=== PATIENT | male | born 1955 | race Caucasian/White ===

== ENCOUNTER → 2020-11-14 00:53 | Outpatient (CLI) | payer MEDICARE, SELFPAY ==
[2020-11-14 18:54] LABS: SARS-CoV-2 RNA PCR Negative
== END ==
PROVIDERS: PCP Family Medicine; Visit Provider Internal Medicine Gastroenterology
DX: Z01.812 Encounter for preprocedural laboratory examination (principal); Z20.822 Contact with and (suspected) exposure to COVID-19
CPT/HCPCS: C9803; U0003; U0005

== ENCOUNTER 2020-11-17 01:10 | Day surgery (SDC) | payer MEDICARE, SELFPAY ==
[2020-11-03 14:22] VITALS: BMI 31.9
[2020-11-17 07:50] VITALS: BP 132/78; PULSE 62; RESP 16; TEMP 36.5; O2SAT 98; BMI 32.3
[2020-11-17] MEDS: LACTATED RINGERS 1,000 ML 150 ML IV CONT (08:00)
--- NOTE | 2020-11-17 08:43 | P.PNAN_ITS ---
Anes - Initial Pre Proc Eval Procedure: Operation Date: 11/17/20 09:00 Proposed Procedures p Screening Colonoscopy - Hung Peña MD Date/Time: 11/17/20 08:43 Surgeon: Hung Peña MD Pre Op Diagnosis: hx of colon polyp Patient Data Age: 65 Gender: M Height: 5 ft 10 in Weight: 102.3 kg Last Vital Signs Temp 97.7 F 11/17/20 07:50 Pulse 62 11/17/20 07:50 Resp 16 11/17/20 07:50 BP 132/78 11/17/20 07:50 Pulse Ox 98 11/17/20 07:50 Allergies Allergy/AdvReac Type Severity Reaction Status Date / Time Penicillins Allergy Unknown Unknown Verified 11/17/20 07:49 Home Medications Medication Instructions Recorded Confirmed Type amlodipine 5 mg-benazepril 20 mg 1 cap PO DAILY #90 cap 09/29/20 11/17/20 Rx capsule atorvastatin 10 mg tablet 10 mg PO DAILY #90 tablet 09/29/20 11/17/20 Rx aspirin 81 mg PO DAILY 11/03/20 11/17/20 History Patient hx anesthesia problems: none Family hx anesthesia problems: none PMFSH Past Medical History Medical History (Updated 02/07/20 @ 11:19 by Joe Nolen MD) High cholesterol HTN (hypertension) Family History Family History (Updated 04/01/16 @ 23:19 by DOCTOR UNKNOWN) Father Hypertension Mother Hypertension Cerebrovascular accident Family history of diabetes mellitus in first degree relative Family history of malignant neoplasm of breast in first degree relative Sibling Hypertension Social History Social History (Updated 09/29/20 @ 08:45 by Sherly Cote) Smoking status: Never smoker Second hand tobacco smoke exposure: No Alcohol intake: never Substance use: never Substance use type: does not use Living arrangements: with family Gender identity (if verbalized by the patient): Male Spiritual care concerns: No Anes - Eval Final PreProcedure Day of Procedure 11/17/20 08:43 Patient weight: overweight Heart: regular rate and rhythm Lungs: clear to auscultation Airway: Mallampati scale class II Neurological: alert and oriented Last oral intake: >/= 8 hours ASA classification: II Emergent: no Anesthetic plan: proceed Anesthesia type and monitoring: general GIVS and standard monitoring Informed Consent: The patient's anesthetic plan and its attendant risks and benefits were discussed with the patient/family/POA. Questions were solicited a nd answers provided to the satisfaction of the patient/family/POA.
--- NOTE | 2020-11-17 08:47 | PM.HPGS ---
History of Present Illness History of Present Illness Consent: Risks, benefits, and alternatives have been discussed and questions answered. Patient agrees to proceed with procedure. Chief complaint: hx of colon polyp Narrative: Gulshan Carrillo is a 65 year old male here for colon cancer screening. He had a polyp removed about 15 years ago Review of Systems Review of Systems: All systems reviewed & are unremarkable except as noted in HPI and below PMFSH Past Medical History Medical History High cholesterol HTN (hypertension) Family History Family History Father Hypertension Mother Hypertension Cerebrovascular accident Family history of diabetes mellitus in first degree relative Family history of malignant neoplasm of breast in first degree relative Sibling Hypertension Social History Social History Smoking status: Never smoker Second hand tobacco smoke exposure: No Alcohol intake: never Substance use: never Substance use type: does not use Living arrangements: with family Gender identity (if verbalized by the patient): Male Spiritual care concerns: No Meds Home Medications and Allergies Home Medications Medication Instructions Recorded Confirmed Type amlodipine 5 mg-benazepril 20 mg 1 cap PO DAILY #90 cap 09/29/20 11/17/20 Rx capsule atorvastatin 10 mg tablet 10 mg PO DAILY #90 tablet 09/29/20 11/17/20 Rx aspirin 81 mg PO DAILY 11/03/20 11/17/20 History Allergies Allergy/AdvReac Type Severity Reaction Status Date / Time Penicillins Allergy Unknown Unknown Verified 11/17/20 07:49 Vital Signs Vital Signs - 24 hr 11/17/20 07:50 Temperature 36.5 C Pulse Rate 62 Respiratory Rate 16 Blood Pressure 132/78 Pulse Oximetry 98 Exam Resp: Auscultation: clear to auscultation bilaterally Cardio: Rate: regular rate Rhythm: regular rhythm GI: GI Palp: Yes Soft to palpation and No Tenderness to palpation present (GI) Assessment and Plan Assessment and plan (1) Colon cancer screening: Code(s): Z12.11 - Encounter for screening for malignant neoplasm of colon Status: Acute Assessment and Plan: Colonoscopy with possible biopsy or polypectomy or cautery or injection of substances.
[2020-11-17] MEDS: SIMETHICONE ORAL SUSPENSION 20 MG/0.3 ML 30 ML BOTTLE 0.6 ML IRRIGATION (09:06)
[2020-11-17 09:14] VITALS: BP 76/44; PULSE 55; RESP 16; O2SAT 94
[2020-11-17 09:24] VITALS: BP 99/70; PULSE 53; RESP 19; O2SAT 99
[2020-11-17 09:34] VITALS: BP 119/68; PULSE 55; RESP 19; O2SAT 99
== END 2020-11-17 09:55 | disposition home or self-care (01) ==
PROVIDERS: PCP Family Medicine; Visit Provider Internal Medicine Gastroenterology
PROC: 0DJD8ZZ Inspection of Lower Intestinal Tract, Via Natural or Artificial Opening Endoscopic (ICD-10-PCS; CPT 45378; principal; 2020-11-17 09:00)
DX: Z12.11 Encounter for screening for malignant neoplasm of colon (principal); Z86.010 Personal history of colon polyps; I10 Essential (primary) hypertension; E78.00 Pure hypercholesterolemia, unspecified
CPT/HCPCS: G0105; C9803; J2704; J7120; U0003; U0005

== ENCOUNTER 2021-05-26 10:27 | Outpatient (CLI) | payer MEDICARE, SELFPAY ==
--- NOTE | ~2021-05-26 | XR_ITS ---
EXAMINATION: XR hip BI wo pelvis DATE: 05/26/2021 10:58 INDICATION: Right hip pain TECHNIQUE: Anteroposterior and frog-leg lateral views of the left hip and anteroposterior and frog-le g lateral views of the right hip were obtained. COMPARISON: None. FINDINGS: Normal alignment at both hips. No fracture. Severe osteoarthritis at the right hip with hypertrophic marginal osteophytes and subarticular cystic changes at the lateral aspect of both the femoral and ac etabular sides of the joint space. Mild to moderate left hip osteoarthritis. Multiple phleboliths in the pelvis. Soft tissues are unremarkable. IMPRESSION: 1. Severe right and mild to moderate left hip osteoarthritis. Reviewed, dictated and finalized at location A.
== END 2021-05-26 10:28 | disposition home or self-care (01) ==
LOC: ANHIMG 10:32
PROVIDERS: PCP Family Medicine; Visit Provider Family Medicine
DX: M16.0 Bilateral primary osteoarthritis of hip (principal)
CPT/HCPCS: 73521

== ENCOUNTER 2021-10-11 07:59 | Outpatient (CLI) | payer MEDICARE, SELFPAY ==
--- NOTE | 2021-10-11 09:04 | ECG_ITS ---
Measurements Intervals [place] Rate: 59 P: 64 [place]: 139 QRS: 3 QRSD: 110 T: 0 QT: 415 QTc: 412 Interpretive Statements SINUS BRADYCARDIA INCOMPLETE RIGHT BUNDLE BRANCH BLOCK LOW QRS VOLTAGE IN PRECORDIAL LEADS INFERIOR INFARCT, AGE INDETERMINATE BASELINE ARTIFACT- I, II, III, AVR, AVL, AVF ABNORMAL ECG Electronically Signed On 10-11-2021 9:37:53 [employer] TECH[employer] MANAGER by Pino John D.O.
[2021-10-11 10:47] LABS: Urine Cotinine NEGATIVE
[2021-10-11 10:48] LABS: Hematocrit 42.6 % (42.0-52.0); Hemoglobin 13.8 g/dL (14.0-18.0); Mean Corpuscular HGB Conc 32.4 g/dl (32-36); Mean Corpuscular Hemoglobin 31.2 pg (26-34); Mean Corpuscular Volume 96.4 fl (80-100); Mean Platelet Volume 10.5 fl (7.4-10.4); Platelet Count Result 200 k/mm3 (150-375); Red Blood Count 4.42 M/mm3 (4.6-6.20); Red Cell Distribution Width 12.2 % (11.5-14.5); White Blood Count 5.6 K/mm3 (4.5-10.0)
== END 2021-10-11 08:00 | disposition home or self-care (01) ==
LOC: ANHSURGERY 08:03
PROVIDERS: PCP Family Medicine; Visit Provider Orthopaedic Surgery
DX: M16.11 Unilateral primary osteoarthritis, right hip (principal); Z01.818 Encounter for other preprocedural examination; I45.10 Unspecified right bundle-branch block
CPT/HCPCS: 80307; 85027; 86850; 86900; 86901; 87081; 93005

== ENCOUNTER 2022-01-07 09:45 | Outpatient (CLI) | payer MEDICARE, SELFPAY ==
[2022-01-07 11:00] LABS: Basophils Percent Auto 0.7 % (0.2-1.2); Eosinophils Absolute Auto 0.1 K/mm3 (0-0.3); Eosinophils Percent Auto 1.6 % (0-4.4); Hematocrit 43.4 % (42.0-52.0); Immature Granulocyte Absolute 0.01 K/mm3 (0.00-0.031); Immature Granulocyte Percent A 0.2 % (0-0.5); Lymphocytes Absolute Auto 1.62 K/mm3 (0.9-3.2); Lymphocytes Percent Auto 27.9 % (18.3-44.2); Mean Corpuscular HGB Conc 32.3 g/dl (32-36); Mean Corpuscular Hemoglobin 31.3 pg (26-34); Mean Corpuscular Volume 96.9 fl (80-100); Mean Platelet Volume 10.1 fl (7.4-10.4); Monocytes Absolute Auto 0.4 K/mm3 (0.1-0.6); Monocytes Percent Auto 6.9 % (2.6-8.5); Neutrophils Absolute Auto 3.6 K/mm3 (1.3-6.7); Neutrophils Percent Auto 62.7 % (45.5-73.1); Platelet Count Result 219 k/mm3 (150-375); Red Blood Count 4.48 M/mm3 (4.6-6.20); Red Cell Distribution Width 12.2 % (11.5-14.5); White Blood Count 5.8 K/mm3 (4.5-10.0)
[2022-01-07 11:11] LABS: Urine Cotinine NEGATIVE
[2022-01-07 11:14] LABS: Albumin Level 4.5 g/dL (3.5-5.1); Anion Gap 7 mmol/L (8-16); Blood Urea Nitrogen 15 mg/dL (9-20); Calcium 9.2 mg/dL (8.4-10.2); Carbon Dioxide 27 mmol/L (22-30); Chloride 104 mmol/L (98-107); Estimated Glomerular Filt Rate > 60; Glucose 114 mg/dL (65-110); Potassium 4.3 mmol/L (3.4-5.0); Sodium 138 mmol/L (137-145)
[2022-01-07 11:21] LABS: Hemoglobin A1C 5.8 % (<5.7)
== END 2022-01-07 09:46 | disposition home or self-care (01) ==
PROVIDERS: PCP Family Medicine; Visit Provider Orthopaedic Surgery
DX: Z01.818 Encounter for other preprocedural examination (principal); M16.11 Unilateral primary osteoarthritis, right hip
CPT/HCPCS: 80048; 80307; 82040; 83036; 85025; 87070

== ENCOUNTER 2022-03-21 08:19 | Outpatient (CLI) | payer MEDICARE, SELFPAY ==
[2022-03-21 08:56] LABS: Basophils Absolute Auto 0.1 K/mm3 (0.0-0.1); Basophils Percent Auto 0.8 % (0.2-1.2); Eosinophils Absolute Auto 0.2 K/mm3 (0-0.3); Eosinophils Percent Auto 3.1 % (0-4.4); Hematocrit 41.3 % (42.0-52.0); Hemoglobin 13.2 g/dL (14.0-18.0); Immature Granulocyte Absolute 0.02 K/mm3 (0.00-0.031); Immature Granulocyte Percent A 0.3 % (0-0.5); Lymphocytes Absolute Auto 2.42 K/mm3 (0.9-3.2); Lymphocytes Percent Auto 37.3 % (18.3-44.2); Mean Corpuscular Hemoglobin 30.7 pg (26-34); Mean Platelet Volume 9.5 fl (7.4-10.4); Monocytes Absolute Auto 0.5 K/mm3 (0.1-0.6); Monocytes Percent Auto 7.1 % (2.6-8.5); Neutrophils Absolute Auto 3.3 K/mm3 (1.3-6.7); Neutrophils Percent Auto 51.4 % (45.5-73.1); Platelet Count Result 216 k/mm3 (150-375); Red Cell Distribution Width 12.1 % (11.5-14.5); White Blood Count 6.5 K/mm3 (4.5-10.0)
[2022-03-21 09:06] LABS: Albumin Level 4.2 g/dL (3.5-5.1); Anion Gap 6 mmol/L (8-16); Blood Urea Nitrogen 17 mg/dL (9-20); Calcium 8.6 mg/dL (8.4-10.2); Carbon Dioxide 28 mmol/L (22-30); Chloride 105 mmol/L (98-107); Estimated Glomerular Filt Rate > 60; Glucose 115 mg/dL (65-110); Potassium 3.8 mmol/L (3.4-5.0); Sodium 139 mmol/L (137-145)
[2022-03-21 09:18] LABS: Urine Cotinine NEGATIVE
== END 2022-03-21 08:20 | disposition home or self-care (01) ==
PROVIDERS: PCP Family Medicine; Visit Provider Orthopaedic Surgery
DX: M16.11 Unilateral primary osteoarthritis, right hip (principal); Z01.818 Encounter for other preprocedural examination
CPT/HCPCS: 80048; 80307; 82040; 85025; 86850; 86900; 86901; 87070

== ENCOUNTER 2022-03-28 00:50 | Day surgery (SDC) | payer MEDICARE, SELFPAY ==
--- NOTE | 2022-01-07 09:59 | PC.NURSE ---
Report to the Outpatient Waiting Room, entrance under the green pavilion located off [facility], at time _0600_ on date _01/24/22_. OR Time: __0730__. PACK A SMALL OVERNIGHT BAG AND LEAVE IT IN THE CAR - You and your visitor will be asked a series of questions to screen for COVID 19 for your protection. - Only one visitor is allowed at this time. - The patient visitor is requested to leave or wait in car when not with patient. VISITING HOURS 10AM-8PM, USE HOSPITAL MAIN ENTRANCE #1 - A mask is required within the hospital. Patients may have clear liquids (water, carbonated beverages, clear teas, apple juice) until 3 hours prior to surgery (0430 AM) with a maximum of 20 ounces. - No food from midnight until time of surgery Take the following medications with a SIP of water the morning of surgery: _AMLODIPINE_ Medications to discontinue per [facility] - PT STATES TO STOP ASPIRIN AND SUPPLEMENTS 7 DAYS PRIOR TO SURGERY, Date to take last 01/16/22_ Please no deodorant, or body powder the day of surgery. No jewelry (including any body piercings) or valuables the day of surgery, leave them at home. Please take a shower or bath the night before, or the morning of, surgery with an antibacterial soap. Wear comfortable, loose fitting clothing. - Jewelry must be removed prior to entering the operating room. Rings and piercings that are not removed may be cut off. - The hospital will not accept responsibility for valuables. - Please leave all valuables, including medications, at home the day of surgery. If you are going home after surgery, a licensed guard driver must drive you home. - NO public transportation without another adult. - We recommend that an adult stay with you for 24 hours following discharge. - We also recommend that you do not drive, make important decision, drink alcoholic beverages, or take any drugs that were not prescribed by your health care provider for at least 24 hours after your discharge time. Follow any additional instructions given to you from your surgeon. If you or anyone in your household have experienced Covid symptoms in the past week, please notify your surgeon or the nurse liaison at the phone number below for possible testing. Instructions given to ____PT and asked if any additional questions and then verbalized understanding. Patient advised to call surgeon office or pre surgery nurse liaison [phone] if any additional questions.
[2022-01-07 10:39] VITALS: BP 136/80; PULSE 64; RESP 20; TEMP 36.9; O2SAT 98; BMI 33.2
[2022-03-17 08:27] VITALS: BMI 33.2
--- NOTE | 2022-03-17 08:30 | PC.NURSE ---
Report to the Outpatient Waiting Room, entrance under the green pavilion located off [facility], at time _0600_ on date _03/28/22_. OR Time: _0730_. - You and your visitor will be asked a series of questions to screen for COVID 19 for your protection. - Only one visitor is allowed at this time. - The patient visitor is requested to leave or wait in car when not with patient. - A mask is required within the hospital. Patients may have clear liquids (water, carbonated beverages, clear teas, apple juice) until 3 hours prior to surgery (0430 AM) with a maximum of 20 ounces. - No food from midnight until time of surgery Take the following medications with a SIP of water the morning of surgery: ___AMLODIPINE___ Medications to discontinue per physician _PT STATES PER DR RAWLS'S INSTRUCTIONS TO STOP ASPIRIN AND SUPPLEMENTS 7 DAYS PRIOR TO SURGERY, Dates to take last dose 03/20/22_ Please no make-up, nail malawian, hairspray, perfume, deodorant, or body powder the day of surgery. No jewelry (including any body piercings) or valuables the day of surgery, leave them at home. Please take a shower or bath the night before, or the morning of, surgery with an antibacterial soap. Wear comfortable, loose fitting clothing. - Jewelry must be removed prior to entering the operating room. Rings and piercings that are not removed may be cut off. - The hospital will not accept responsibility for valuables. - Please leave all valuables, including medications, at home the day of surgery. If you are going home after surgery, a licensed delivery driver must drive you home. - NO public transportation without another adult. - We recommend that an adult stay with you for 24 hours following discharge. - We also recommend that you do not drive, make important decision, drink alcoholic beverages, or take any drugs that were not prescribed by your health care provider for at least 24 hours after your discharge time. Follow any additional instructions given to you from your surgeon. If you or anyone in your household have experienced Covid symptoms in the past week, please notify your surgeon or the nurse liaison at the phone number below for possible testing. Telephone instructions given to ____PT and asked if any additional questions and then verbalized understanding. Patient advised to call surgeon office or pre surgery nurse liaison [phone] if any additional questions.
--- NOTE | 2022-03-25 10:59 | PM.IMHP ---
H&P: HPI History of Present Illness Date/Time: 03/25/22 10:59 Chief Complaint: Right hip DJD Narrative: 66-year-old male patient of Dr. Nolen who presents today for right anterior total plasty. He has been having pain in his hip years. He has advanced type arthritis in the hip. He has tried taking [id number] anti-inflammatories without improvement of his symptoms. Patient feels that he is having rather severe symptoms on a daily basis. It is affecting his daily life. Feels this point is ready to proceed with total hip arthroplasty with a continued nonsurgical treatment. Most of his pain is in the medial groin as well as in the anterior thigh. Review of Systems Review of Systems: All systems reviewed & are unremarkable except as noted in HPI and below PMFSH Past Medical History Medical History High cholesterol HTN (hypertension) Family History Family History Father Hypertension Mother Hypertension Cerebrovascular accident Family history of diabetes mellitus in first degree relative Family history of malignant neoplasm of breast in first degree relative Sibling Hypertension Social History Social History Social History: Smoking status: Never smoker Second hand tobacco smoke exposure: No Additional smoking assessment comments: PT DENIES ALL FORMS OF TOBACCO USE Alcohol intake: never Substance use: never Substance use type: does not use Additional living arrangements comments: Gender identity (if verbalized by the patient): Male Sexual Orientation (if Verbalized by the Patient): Straight or Heterosexual Spiritual care concerns: No Meds Home Medications and Allergies Home Medications Medication Instructions Recorded Confirmed Type aspirin 81 mg tablet 81 mg PO DAILY 11/03/20 03/17/22 History Glucofort 1 cap PO HS 10/11/21 03/17/22 History alpha lipoic acid 200 mg tablet 200 mg PO DAILY 10/11/21 03/17/22 History amlodipine 5 mg-benazepril 20 mg 1 cap PO QAM 10/11/21 03/17/22 History capsule atorvastatin 10 mg tablet 10 mg PO QAM 10/11/21 03/17/22 History cholecalciferol (vitamin D3) 25 25 mcg PO QAM 10/11/21 03/17/22 History mcg (1,000 unit) capsule glucosamine-chondroitin 250 mg-200 1 tablet PO QAM 10/11/21 03/17/22 History mg tablet (Osteo Bi-Flex) omega-3 fatty acids-vitamin E 1 cap PO DAILY 10/11/21 03/17/22 History 1,000 mg capsule Allergies Allergy/AdvReac Type Severity Reaction Status Date / Time Penicillins Allergy Unknown Rash Verified 03/17/22 08:26 Exam Narrative: 66-year-old male he is 5 ft 9 and 230 lb, his BMI is 34. His right hip flexes to 110 with mild anterior thigh discomfort. Internal rotation is to 0 with anterior thigh and lateral knee pain. External rotation to 40 with groin pain. Stinchfield maneuver causes some anterior thigh pain. He walks with a limp. He has moderate pain with abduction strength testing lateral position. He is able hold at 20? with normal strength. No tenderness over trochanter. Skin is all in normal around the groin area. Normal sensation right lower extremity. No edema. 2+ dorsalis pedis pulse. Resp: Auscultation: clear to auscultation bilaterally Cardio: Rate: regular rate Rhythm: regular rhythm Assessment and Plan Assessment and plan (1) Hip arthritis: Code(s): M16.10 - Unilateral primary osteoarthritis, unspecified hip Status: Acute Plan 66-year-old male who has advanced osteoarthritis of the right hip with rather severe symptoms on a daily basis. Again feels this point is ready proceed with total hip arthroplasty with a continuing nonsurgical treatment. Surgical procedure all risks and complications were discussed in detail questions were answered and will proceed. Patient will see his primary care
[2022-03-28] VITALS (14 sets, daily range): BP systolic 103–128; BP diastolic 57–78; PULSE 56–77; RESP 12–18; TEMP 35.9–36.9; O2SAT 95–100
--- NOTE | ~2022-03-28 | XR_ITS ---
EXAMINATION: XR hip RT 1V w AP pelvis, XR surgery orthopedic DATE: 03/28/2022 11:39 INDICATION: Right total hip arthroplasty TECHNIQUE: Single intraoperative fluoroscopic view of the right hip. 64 seconds of fluoroscopy. 2 pos toperative views of the right hip. FINDINGS: There is a right total hip arthroplasty in expected position. Subcutaneous gas with soft t issue swelling are consistent with recent surgery. There is severe osteoarthritis of the left hip. IMPRESSION: 1. Recent right total hip arthroplasty. Reviewed, dictated and finalized at location A. IMPRESSION: 1. Recent right total hip arthroplasty.
[2022-03-28] MEDS: LACTATED RINGERS 1,000 ML 30 ML IV CONT ×2 (06:40→11:31)
[2022-03-28] MEDS: TRANEXAMIC ACID 1,000MG/ISO100 1,000 MG/100 ML BAG 200 MG IVPB (06:40)
[2022-03-28] MEDS: ACETAMINOPHEN 500 MG TABLET 1000 MG PO ×2 (06:44→16:55)
--- NOTE | 2022-03-28 06:59 | WPDANESEPPF ---
Anes - Initial Pre Proc Eval Procedure: Operation Date: 03/28/22 07:30 Proposed Procedures p Right Total Hip Arthroplasty Direct Anterior Approach - Tera Granados MD Date/Time: 03/28/22 06:59 Surgeon: Tera Granados MD Pre Op Diagnosis: oa right hip Patient Data Age: 66 Gender: M Height: 1.75 m Weight: 102.1 kg Last Vital Signs Temp 36.9 C 01/07/22 10:39 Pulse 64 01/07/22 10:39 Resp 20 01/07/22 10:39 BP 136/80 01/07/22 10:39 Pulse Ox 98 01/07/22 10:39 O2 Del Method Room Air 01/07/22 10:39 Allergies Allergy/AdvReac Type Severity Reaction Status Date / Time Penicillins Allergy Unknown Rash Verified 03/17/22 08:26 Home Medications Medication Instructions Recorded Confirmed Type aspirin 81 mg tablet 81 mg PO DAILY 11/03/20 03/17/22 History Glucofort 1 cap PO HS 10/11/21 03/17/22 History alpha lipoic acid 200 mg tablet 200 mg PO DAILY 10/11/21 03/17/22 History amlodipine 5 mg-benazepril 20 mg 1 cap PO QAM 10/11/21 03/17/22 History capsule atorvastatin 10 mg tablet 10 mg PO QAM 10/11/21 03/17/22 History cholecalciferol (vitamin D3) 25 25 mcg PO QAM 10/11/21 03/17/22 History mcg (1,000 unit) capsule glucosamine-chondroitin 250 mg-200 1 tablet PO QAM 10/11/21 03/17/22 History mg tablet (Osteo Bi-Flex) omega-3 fatty acids-vitamin E 1 cap PO DAILY 10/11/21 03/17/22 History 1,000 mg capsule Laboratory Tests 03/28/22 06:30 Vitamin D 25-Hydroxy Pending Patient hx anesthesia problems: none Family hx anesthesia problems: none Results Review: All pre-operative results and documents have been reviewed as part of the pre-operative evaluation. [facility] Past Medical History Medical History High cholesterol HTN (hypertension) Surgical History Surgical History (Updated 03/28/22 @ 06:59 by Guilherme Lee MD) H/O colonoscopy Family History Family History Father Hypertension Mother Hypertension Cerebrovascular accident Family history of diabetes mellitus in first degree relative Family history of malignant neoplasm of breast in first degree relative Sibling Hypertension Social History Social History Social History: Smoking status: Never smoker Second hand tobacco smoke exposure: No Additional smoking assessment comments: PT DENIES ALL FORMS OF TOBACCO USE Alcohol intake: never Substance use: never Substance use type: does not use Living arrangements: with family Additional living arrangements comments: Gender identity (if verbalized by the patient): Male Sexual Orientation (if Verbalized by the Patient): Straight or Heterosexual Spiritual care concerns: No Anes - Eval Final PreProcedure Day of Procedure 03/28/22 06:59 Patient weight: obese Heart: regular rate and rhythm Lungs: clear to auscultation Airway: Mallampati scale class II Neurological: alert and oriented Last oral intake: >/= 8 hours ASA classification: II Emergent: no Anesthetic plan: proceed Anesthesia type and monitoring: general ETT and standard monitoring Results Review: All pre-operative results and documents have been reviewed as part of the pre-operative evaluation. Informed Consent: The patient's anesthetic plan and its attendant risks and benefits were discussed with the patient/family/POA. Questions were solicited and answers provided to the satisfaction of the patient/family/POA.
--- NOTE | 2022-03-28 07:17 | WPDHPUPDATE1 ---
History and Physical Update Update Date/Time: 03/28/22 07:17 History and Physical has been reviewed, including an updated exam of the patient. There are NO changes in the patient's condition. Risks, benefits, and alternatives have been discussed and questions answered. Patient agrees to proceed with procedure.
[2022-03-28] MEDS: ceFAZolin 2 GM/D5W 50 ML 2 GM/50 ML BAG IVPB (07:51)
[2022-03-28] MEDS: ceFAZolin SODIUM 1 GM VIAL 3 GM (08:06)
[2022-03-28 08:28] LABS: Vitamin D 25 Hydroxy 41.3 ng/mL
[2022-03-28] MEDS: ceFAZolin SODIUM 1 GM VIAL 2 GM IV PUSH (10:55)
[2022-03-28] MEDS: TRANEXAMIC ACID 1,000 MG/10 ML AMPUL 1000 MG IV PUSH (10:58)
--- NOTE | 2022-03-28 11:49 | W.PM.PROC2 ---
Procedure Note - Detailed Date of Procedure 03/28/22 Pre-op Diagnosis oa right hip Post-op Diagnosis Same Procedure Performed Direct anterior approach right total hip arthroplasty Surgeon Tera Granados MD Drying Machine Tender Andre Anesthesia General Description of Procedure Patient was brought to the operating room and general anesthesia was administered. You was transferred to the OSI [place] table after padded boots applied additional padding. He was position on the OSI [place] table your arms position carefully. Right hip prepped draped usual fashion. He received 2 g of Ancef weight based vancomycin 1 g tranexamic acid preoperatively. A 10 cm longitudinal incision was made starting 3 cm lateral to the ASIS about 1 cm distal. Dissection was carried down to the fascia of the tensor fascia margarita which was longitudinally incised and elevated off the anterior 50% and of the tensor fascia margarita muscle. Interval between rectus femoris and tensor fascia margarita developed. Ascending lateral femoral circumflex vessels were identified ligated with suture and divided. Ileal capsule layers elevated off anterior capsule retractor placed the hip abducted internally rotated and the gluteus minimus elevated off the lateral capsule. Inverted T capsulotomy was performed. Femoral neck osteotomy was made according to preoperative templating. Femoral head was removed. It measured 58 mm in diameter. Acetabulum was exposed labrum excised. He had a very shallow acetabulum as was noted on x-ray. The leg was externally rotated extended and the interval between piriformis tendon and conjoined tendon incised which allowed partial recession of the conjoined tendon and allow the piriformis to flip. With the leg back horizontal external rotation traction acetabulum was exposed. We medialized the medial wall and reamed up to 56 mm which was an inadequate fit with the trial. We reamed to 57 which reached the periphery of the acetabulum optimally circumferentially and there was a tiny bite with the 57 trial. We packed the superolateral bone cyst with cancellous bone from the femoral neck. The 58 shell was impacted and fully seated with fair amount of work with excellent press fit. This was placed at 40? of abduction and anteversion such that the anterior rim of the acetabular component was flush with the anterior rim of the white earth acetabulum. This left about 5 mm proud posteriorly and posterior superiorly. Some of the protruding large lateral osteophyte was removed. Single screw placed in the ilium and the 36 inner diameter polyethylene liner fully seated without difficulty. The leg was externally rotated and extended. We broached up to a size 8 Actis broach and took an x-ray to see how we were doing. We were a little bit tight with the +5 head on the standard neck and x-rays confirmed that we were little bit long as well. We could see we could go up in size. We calcar chanel planed and then countersunk another 3 mm with the broach calcar planed again and broached up to a size 9 which had wiggle and then the size 10 which did not have any rotational play. We trialed with the +5 and again it was just a little bit tight I felt. We assessed leg lengths under fluoro and I thought we were still about an 8th of an inch longer than our preoperative plan. We countersunk the broach another 3 mm and trialed again and this time with a +5 we had appropriate soft tissue tension with excellent stability and leg lengths matched our preoperative plan. The torsional stability of the broach was confirmed 1 more time. The medial femoral neck was prepared for the collar on the stem and we impacted the size 10 Actis stem which seated fully with a tight fit. We trialed with the 5 in all seemed appropriate with ample Shuck. 8.5 was a bit tight. The size 5 ceramic 36 mm diameter femoral head was impacted onto the clean and dried trunnion wound irrigated again with antibiotic solution hip was reduced soft tissue
--- NOTE | 2022-03-28 11:49 | SUR.PHASEI ---
1138- oral airway removed
[2022-03-28] MEDS: SODIUM CHLORIDE 0.9% IV 1,000 ML 125 ML IV CONT (16:54)
[2022-03-28] MEDS: oxyCODONE HCL (*CRX) 5 MG TAB IR PO ×2 (16:55→20:36)
[2022-03-28] MEDS: SENNA/DOCUSATE SODIUM TABLET 2 TAB PO (16:56)
--- NOTE | 2022-03-28 18:47 | ADMGEN ---
Addendum entered by Aidee Enrique RN 03/28/22 18:47: Patient arrived to the floor at 1305 from OR. Original Note: This patient, Gulshan Carrillo, was admitted to 2 Medical Room 251-01. Patient/family oriented to hospital policies and general routines including ID bracelet, bed and alarms, visiting hours, pain management, procedures, bathroom and other care routines, personal items, smoking policy, room service/diet, and visiting hours. Information on how to activate the Rapid Response Team has been discussed. Patient/Family are encouraged to report perceived risks to care and to ask questions if they do not understand what they are told or what they should do.
[2022-03-28] MEDS: FAMOTIDINE 20 MG TABLET PO (20:36)
--- NOTE | 2022-03-28 22:34 | PM.IMCN ---
Assessment and Plan Assessment and plan (1) S/P total right hip arthroplasty: Code(s): Z96.641 - Presence of right artificial hip joint Status: Acute Assessment and Plan: Patient reports his postop pain is well controlled. He has no complaints. He has been up and standing at bedside with a walker. Postop management and DVT prophylaxis per primary service. (2) Essential hypertension: Code(s): I10 - Essential (primary) hypertension Status: Acute Assessment and Plan: The patient's blood pressure is well controlled. Will resume the patient's home amlodipine/benazepril. HPI Data of Consult Consult date: 03/28/22 Requesting Physician: Tera Granados MD Primary Care Provider: Joe Nolen MD Family Provider: Joe Nolen MD Consult Narrative Narrative: Gulshan Carrillo is a 66 year old male with a past medical history of hypertension and hyperlipidemia who presented to the hospital for an elective right total hip arthroplasty 03/28/2022. The patient reports that he had been struggling for about a year with hip pain. The surgery had been rescheduled to other times so he is happy to have the surgery completed at this time. He reports that his postop pain is well controlled with his current regimen. He has stood up at the bedside multiple times since surgery. The procedure well and had an estimated blood loss of 450 mL. The patient has a drain in place. The patient was lightheaded after surgery and did have 1 episode of dry heaves which has since resolved. He has tolerated Jell-O. He reports that he has been voiding every 2-3 hours since surgery because he has IV fluids going. He denies any dysuria or sensation of incomplete bladder emptying. He reports that he has daily bowel movements. His last bowel movement was on Monday night. He usually eats a banana each status maintain his regularity. He denies any chest pain or shortness of breath. He has not had any cough or congestion. He reports that his current (110/72) blood pressure is lower than his usual blood pressure. Review of Systems Review of Systems: 12 systems were reviewed with pertinent positives and negatives per HPI. Except as documented in the HPI, all other systems were reviewed and are negative. [facility], [facility] Past Medical History Medical History (Updated 03/28/22 @ 23:40 by Jade Nicholson DO) Benign prostatic hyperplasia with lower urinary tract symptoms However patient reports history of BPH or urinary symptoms. Essential hypertension High cholesterol History of basal cell carcinoma Kidney stones 1 occurrence which he passed on his own. Melanoma Excised from the left methodist Obesity BMI of 33.1 Pre-diabetes Patient had a hemoglobin A1c of 6.09 May 2021 which technically qualifies for criteria of diet-controlled diabetes. Squamous cell carcinoma of scalp Surgical History Surgical History (Updated 03/28/22 @ 23:34 by Jade Nicholson DO) H/O colonoscopy With history of polypectomy. History of tonsillectomy and adenoidectomy Family History Family History Father Hypertension Mother Hypertension Cerebrovascular accident Family history of diabetes mellitus in first degree relative Family history of malignant neoplasm of breast in first degree relative Sibling Hypertension Social History Social History (Updated 03/28/22 @ 23:38 by Jade Nicholson DO) Social History: He lives in a single-level home with 2 steps for entry. Code status: Full code Surrogate decision maker: Smoking status: Never smoker Second hand tobacco smoke exposure: No Alcohol intake: current Alcohol use details: Where alcohol use and only in small amounts. Substance use: never Substance use type: does not use Living arrangements: with family Additional living arrangements comments: He lives at home with his . The
[2022-03-29] MEDS: oxyCODONE HCL (*CRX) 5 MG TAB IR PO ×3 (00:43→08:03)
[2022-03-29] MEDS: ACETAMINOPHEN 500 MG TABLET 1000 MG PO ×3 (00:43→12:31)
[2022-03-29 01:59] VITALS: BP 119/58; PULSE 71; RESP 16; TEMP 36.9; O2SAT 99
[2022-03-29 05:20] VITALS: BP 91/57; PULSE 74; RESP 16; TEMP 36.5; O2SAT 97
[2022-03-29 05:20] LABS: Basophils Percent Auto 0.2 % (0.2-1.2); Hematocrit 32.1 % (42.0-52.0); Hemoglobin 10.5 g/dL (14.0-18.0); Immature Granulocyte Absolute 0.04 K/mm3 (0.00-0.031); Immature Granulocyte Percent A 0.4 % (0-0.5); Lymphocytes Absolute Auto 1.21 K/mm3 (0.9-3.2); Lymphocytes Percent Auto 12.1 % (18.3-44.2); Mean Corpuscular HGB Conc 32.7 g/dl (32-36); Mean Corpuscular Hemoglobin 31.2 pg (26-34); Mean Corpuscular Volume 95.3 fl (80-100); Mean Platelet Volume 10.1 fl (7.4-10.4); Monocytes Absolute Auto 0.9 K/mm3 (0.1-0.6); Monocytes Percent Auto 8.8 % (2.6-8.5); Neutrophils Absolute Auto 7.8 K/mm3 (1.3-6.7); Neutrophils Percent Auto 78.5 % (45.5-73.1); Platelet Count Result 152 k/mm3 (150-375); Red Blood Count 3.37 M/mm3 (4.6-6.20); Red Cell Distribution Width 12.2 % (11.5-14.5)
[2022-03-29 05:30] LABS: Anion Gap 6 mmol/L (8-16); Blood Urea Nitrogen 17 mg/dL (9-20); Calcium 8.3 mg/dL (8.4-10.2); Carbon Dioxide 26 mmol/L (22-30); Chloride 105 mmol/L (98-107); Estimated CRCL calculation 75 ml/min; Estimated Glomerular Filt Rate > 60; Glucose 141 mg/dL (65-110); Potassium 4.5 mmol/L (3.4-5.0); Sodium 137 mmol/L (137-145)
--- NOTE | 2022-03-29 06:27 | PM.PNORT ---
Subjective Subjective Date/Time Seen: 03/29/22 06:27 POD 1 alert avss ,drain is out, dressing is dry NVI, pt has been up to restroom multiple times over night, pain is well controlled, overall doing well, plan to have pt work with PT today then home later today Objective Data Vital Signs Vital Signs: Vital Signs - 24 hr 03/28/22 11:31 03/28/22 11:46 03/28/22 12:01 Temperature 36.7 C Pulse Rate 62 59 L 58 L Respiratory Rate 12 12 12 Blood Pressure 103/74 124/57 L 113/76 Pulse Oximetry 98 98 96 Oxygen Delivery Simple Face Mask Simple Face Mask Room Air Oxygen Flow Rate 8 8 03/28/22 12:16 03/28/22 12:30 03/28/22 12:45 Temperature Pulse Rate 58 L 63 59 L Respiratory Rate 12 12 12 Blood Pressure 111/68 106/68 114/70 Pulse Oximetry 96 95 100 Oxygen Delivery Room Air Room Air Room Air Oxygen Flow Rate 03/28/22 13:35 03/28/22 13:10 03/28/22 13:25 Temperature 36.2 C L 35.9 C L Pulse Rate 56 L 58 L Respiratory Rate 16 16 Blood Pressure 114/67 114/72 Pulse Oximetry 96 99 Oxygen Delivery Room Air Oxygen Flow Rate 03/28/22 13:55 03/28/22 14:55 03/28/22 13:05 Temperature 36.0 C L 36.0 C L Pulse Rate 72 66 Respiratory Rate 16 16 Blood Pressure 125/78 106/68 Pulse Oximetry 98 98 Oxygen Delivery Room Air Oxygen Flow Rate 03/28/22 19:42 03/28/22 21:22 03/28/22 22:40 Temperature 36.8 C 36.9 C Pulse Rate 66 66 77 Respiratory Rate 16 16 16 Blood Pressure 110/72 111/68 Pulse Oximetry 97 97 98 Oxygen Delivery Room Air Oxygen Flow Rate 03/29/22 01:59 03/29/22 05:20 Temperature 36.9 C 36.5 C Pulse Rate 71 74 Respiratory Rate 16 16 Blood Pressure 119/58 L 91/57 L Pulse Oximetry 99 97 Oxygen Delivery Oxygen Flow Rate Intake/Output Intake/Output: Intake & Output 03/26/22 03/27/22 03/28/22 03/29/22 23:59 23:59 23:59 23:59 Intake Total 960 300 Output Total 100 30 Balance 860 270 Meds/Results Medications: Active Medications Generic Name Dose Route Start Last Admin Trade Name Freq PRN Reason Stop Dose Admin Acetaminophen 1,000 mg 03/28/22 12:55 03/29/22 05:33 Acetaminophen 500 Mg Tablet PO 1,000 mg Q6HR MOLLY Administration Al Hydrox/Mg Hydrox/Simethicone 30 ml 03/28/22 12:55 Mag Hydrox/Al Hydrox/Simeth 30 Ml Udc PO Q6H PRN Indigestion Amlodipine Besylate 5 mg 03/29/22 09:00 Amlodipine Besylate 5 Mg Tablet PO 04/28/22 08:59 QAM MOLLY Apixaban 2.5 mg 03/29/22 09:00 Apixaban 2.5 Mg Tablet PO 05/02/22 21:01 Q12HR [facility] Atorvastatin Calcium 10 mg 03/29/22 09:00 Atorvastatin 10 Mg Tablet PO QAM [facility] Celecoxib 200 mg 03/29/22 09:00 Celecoxib 200 Mg Capsule PO DAILY [facility] Cephalexin HCl 500 mg 03/29/22 12:00 Cephalexin 500 Mg Capsule PO Q6HR [facility] Famotidine 20 mg 03/28/22 21:00 03/28/22 20:36 Famotidine 20 Mg Tablet PO 20 mg Q12HR MOLLY Administration Vancomycin HCl 1,000 mg in 250 mls @ 250 mls/hr 03/28/22 18:00 03/29/22 05:35 Vancomycin 1,000 Mg/D5w 250 Ml IVPB 03/29/22 06:59 250 mls/hr Q12H MOLLY Administration Cefazolin Sodium 1 gm in 50 mls @ 100 mls/hr 03/28/22 16:00 03/29/22 01:13 Ancef 1 Gm/D5w 50 Ml Pm IVPB 03/29/22 08:29 Infused Q8H MOLLY Infusion Lisinopril 20 mg 03/29/22 09:00 Lisinopril 20 Mg Tablet PO QAM MOLLY Morphine Sulfate 2 mg 03/28/22 12:55 Morphine Sulfate (*Crx) 2 Mg/Ml Inj IV PUSH Q4H PRN Pain Rated 7-10 Naloxone HCl 0.1 mg 03/28/22 12:55 Naloxone Hcl 0.4 Mg/Ml Vial IV PUSH Q2M PRN Opiate Reversal Non-Formulary Medication 200 mg 03/29/22 09:00 Alpha Lipoic Acid PO 04/28/22 08:59 DAILY MOLLY Ondansetron HCl 4 mg 03/28/22 12:55 Ondansetron Inj 4 Mg/2 Ml Vial IV PUSH Q4H PRN Nausea And Vomiting Oxycodone HCl 5 mg 03/28/22 12:55 03/29/22 05:33 Oxycodone Hcl (*Crx) 5 Mg Tab Ir PO 5 mg Q4H MOLLY Administration Oxycodone HCl 5 mg
--- NOTE | 2022-03-29 06:33 | PM.DS ---
DS: Admitting Diagnosis Discharge Date 03/29 Admitting Diagnosis Right hip DJD DS: Discharge Diagnosis Discharge Diagnosis Plan 66-year-old male underwent right anterior total hip arthroplasty on 03/28. Underwent the procedure without complications. Postoperatively he has been afebrile vital signs are stable. Neurovascular is intact. His dressing is dry. Drain is out. He is weight-bearing as tolerated. He is on Eliquis for DVT prophylaxis. He was up to the restroom multiple times a day of surgery and overnight comfortable. He is using the walker well. Is on Eliquis for DVT prophylaxis. Pain is well controlled with scheduled Tylenol as well as oxycodone 5 mg. He is also on Celebrex 200 mg for the 1st 10 days for heterotopic bone formation prophylaxis. He will also go home on a 12 day course of Keflex due to his history of diabetes. We will also give him MiraLax and Senokot for constipation when he goes home. He was advised keep leg elevated home prevent swelling but be up walking around multiple times during the day. Patient was advise any questions or concerns once he goes home he should call the office otherwise we will see him at his appointed date. DS: Summary Hospital Course Hospital Course: Stable Time Spent with Patient Time attestation: Total time spent providing and/or coordinating discharge services: DS: Data Data Completed and Pending Labs on day of discharge: Labs from last 24 hours 03/29/22 03/29/22 03/28/22 05:02 05:02 06:30 WBC 10.0 RBC 3.37 L Hgb 10.5 L Hct 32.1 L MCV 95.3 MCH 31.2 MCHC 32.7 RDW 12.2 Plt Count 152 MPV 10.1 Immature Gran % (Auto) 0.4 Neut % (Auto) 78.5 H Lymph % (Auto) 12.1 L [place] % (Auto) 8.8 H Eos % (Auto) 0.0 Baso % (Auto) 0.2 Lymph # (Auto) 1.21 [place] # (Auto) 0.9 H Eos # (Auto) 0.0 Baso # (Auto) 0.0 Abs Immat Gran (auto) 0.04 H Absolute Neuts (auto) 7.8 H Absolute Nucleated RBC 0.0 Nucleated RBC % 0.0 Sodium 137 Potassium 4.5 Chloride 105 Carbon Dioxide 26 Anion Gap 6 L BUN 17 Creatinine 1.00 Estim Creat Clear Calc 75 Estimated GFR > 60 Glucose 141 H Calcium 8.3 L Vitamin D 25-Hydroxy 41.3 Discharge Plan Discharge Discharge Instructions: TERA GRANADOS M.D [facility], [place] [id number] [place] [address] POST-OPERATIVE DISCHARGE INSTRUCTIONS ANTERIOR TOTAL HIP ARTHROPLASTY 1. Move toes/feet up and down every hour while awake. 2. Be up walking every hour while awake. 3. Use cane in hand opposite of side of hip surgery or walker as comfort allows. Avoid sitting in a chair unless eating, receiving visitors or using the toilet. 4. When resting, lie on back with leg elevated above heart to minimize swelling. Significant swelling could indicate a blood clot and if this occurs, call the office (or go to the ER) to have a venous ultrasound performed. 5. Wound Care: Keep dry sponge on wound for 2 weeks. Use minimal tape. 6. May shower with dressing off. Stand Alone Forms: General Discharge Instructions Follow-up/Referrals: Tera Granados MD [Physician] - Keep Reg. Scheduled Appt. Discharge Medications: New acetaminophen 500 mg Tablet 1,000 mg PO Q6HR Qty: 90 0RF Eliquis 2.5 mg Tablet 2.5 mg PO Q12HR Qty: 69 0RF celecoxib [Celebrex] 200 mg Capsule 200 mg PO DAILY Qty: 10 0RF sennosides-docusate sodium [Senokot-S] 8.6-50 mg Tablet 2 tab-cap PO BID Qty: 60 0RF cephalexin 500 mg Capsule 500 mg PO Q6HR Qty: 48 0RF polyethylene glycol 3350 [Miralax] 17 gram Powder In Packet 17 g PO QAM Qty: 30 0RF oxycodone 5 mg Tablet 5 mg PO Q4H Qty: 40 0RF Continued cholecalciferol (vitamin D3) 25 mcg (1,000 unit) Capsule 25 mcg PO QAM glucosamine-chondroitin [Osteo Bi-Flex] 250-200 mg Tablet 1 tablet PO QAM omega-3 fa
--- NOTE | 2022-03-29 07:45 | PM.IMPN ---
Progress Note: A&P Assessment and Plan (1) Hip arthritis: Code(s): M16.10 - Unilateral primary osteoarthritis, unspecified hip Status: Acute Assessment and Plan: POD#1 Right Total Hip Arthroplasty -Advised patient to take OTC PPI vs H2 rylan if he plans to regularly take celebrex while taking apixban -Advised patient against chronic NSAID plus DOAC due to GI bleeding risk -Gave ED warnings for GIB -Patient verbalized understanding (2) Essential hypertension: Code(s): I10 - Essential (primary) hypertension Status: Acute Assessment and Plan: Continue home amlodipine. (3) High cholesterol: Code(s): E78.00 - Pure hypercholesterolemia, unspecified Status: Acute Assessment and Plan: Continue home atorvastatin. Subjective Date/time seen: 03/29/22 07:45 Patient reports prior to his hip surgery he would occasionally take NSAIDs for pain if he was golfing or doing some activity that required a lot of movement. Reports his family medicine doctor actually told him to not use NSAIDS on a daily basis. Has questions about when to start taking aspirin. Says the only medications he takes is amlodipine and atorvastatin and says he was told by orthopedic surgery to stop taking all supplements one week before surgery. Reports adequate pain control. Review of Systems Gastrointestinal: Gastrointestinal: Denies abdominal pain, Denies melena and Denies hematochezia Exam Narrative: GENERAL: NAD, cooperative HEENT: Normocephalic, atraumatic, anicteric, nares clear, oropharynx moist and clear, dentition normal NECK: Supple CV: Normal S1, S2, RRR, No MRG RESP: CTAB, Normal work of breathing. EXTREMITIES: Warm and well perfused, no clubbing, cyanosis, or edema. SKIN: warm, dry and intact. NEURO: CN 2-12 grossly intact Objective Data Vital Signs Vital Signs: Vital Signs - 24 hr 03/28/22 11:31 03/28/22 11:46 03/28/22 12:01 Temperature 98.0 F Pulse Rate 62 59 L 58 L Respiratory Rate 12 12 12 Blood Pressure 103/74 124/57 L 113/76 Pulse Oximetry 98 98 96 Oxygen Delivery Simple Face Mask Simple Face Mask Room Air Oxygen Flow Rate 8 8 03/28/22 12:16 03/28/22 12:30 03/28/22 12:45 Temperature Pulse Rate 58 L 63 59 L Respiratory Rate 12 12 12 Blood Pressure 111/68 106/68 114/70 Pulse Oximetry 96 95 100 Oxygen Delivery Room Air Room Air Room Air Oxygen Flow Rate 03/28/22 13:35 03/28/22 13:10 03/28/22 13:25 Temperature 97.1 F L 96.6 F L Pulse Rate 56 L 58 L Respiratory Rate 16 16 Blood Pressure 114/67 114/72 Pulse Oximetry 96 99 Oxygen Delivery Room Air Oxygen Flow Rate 03/28/22 13:55 03/28/22 14:55 03/28/22 13:05 Temperature 96.8 F L 96.8 F L Pulse Rate 72 66 Respiratory Rate 16 16 Blood Pressure 125/78 106/68 Pulse Oximetry 98 98 Oxygen Delivery Room Air Oxygen Flow Rate 03/28/22 19:42 03/28/22 21:22 03/28/22 22:40 Temperature 98.3 F 98.4 F Pulse Rate 66 66 77 Respiratory Rate 16 16 16 Blood Pressure 110/72 111/68 Pulse Oximetry 97 97 98 Oxygen Delivery Room Air Oxygen Flow Rate 03/29/22 01:59 03/29/22 05:20 Temperature 98.4 F 97.7 F Pulse Rate 71 74 Respiratory Rate 16 16 Blood Pressure 119/58 L 91/57 L Pulse Oximetry 99 97 Oxygen Delivery Oxygen Flow Rate Intake/Output Intake/Output: Intake & Output 03/26/22 03/27/22 03/28/22 03/29/22 23:59 23:59 23:59 23:59 Intake Total 960 550 Output Total 100 30 Balance 860 520 Meds/Results Medications: Active Medications Generic Name Dose Route Start Last Admin Trade Name Freq PRN Reason Stop Dose Admin Acetaminophen 1,000 mg 03/28/22 12:55 03/29/22 05:33 Acetaminophen 500 Mg Tablet PO 1,000 mg Q6HR MOLLY Administration Al Hydrox/Mg Hydrox/Simethicone 30 ml 03/28/22 12:55 Mag Hydrox/Al Hydrox/Simeth 30 Ml Udc PO Q6H PRN Indigestion Amlodipine Besylate 5 mg 03/29/22 09:00 Amlodipine Be
[2022-03-29] MEDS: CHOLECALCIFEROL 1,000 UNITS TABLET 1000 UNITS PO (08:02)
[2022-03-29] MEDS: FAMOTIDINE 20 MG TABLET PO (08:02)
[2022-03-29] MEDS: lisinopriL 20 MG TABLET PO (08:02)
[2022-03-29] MEDS: polyethylene glycoL 3350 17 GM POWD.PACK PO (08:02)
[2022-03-29] MEDS: amLODIPine BESYLATE 5 MG TABLET PO (08:03)
[2022-03-29] MEDS: SENNA/DOCUSATE SODIUM TABLET 2 TAB PO (08:03)
[2022-03-29] MEDS: ATORVASTATIN 10 MG TABLET PO (08:03)
[2022-03-29] MEDS: APIXABAN 2.5 MG TABLET PO (08:03)
[2022-03-29] MEDS: CELECOXIB 200 MG CAPSULE PO (08:03)
[2022-03-29 09:01] VITALS: PULSE 62; O2SAT 96
[2022-03-29 10:40] VITALS: BP 110/67; PULSE 62; RESP 16; TEMP 36.4; O2SAT 99
[2022-03-29] MEDS: CEPHALEXIN 500 MG CAPSULE PO (12:30)
--- NOTE | 2022-03-30 09:56 | PM.OP ---
Procedure Note - Brief Procedure Note - Brief Date of procedure: 03/30/22 Pre-op diagnosis: oa right hip OA right hip Procedure performed: right anterior total arthroplasty. Description of procedure: Patient had anterior right total arthroplasty done. I was involved in the care with the patient from positioning patient on the operative table as well as 1st assisting throughout the time of surgery as well as closure of the wound and helping get patient transported to recovery room. 4 hours was spent in this entire process. Surgeon: DAGO Ott
== END 2022-03-29 12:56 | disposition home or self-care (01) ==
LOC: ANHSURGERY 06:08 → ANH2MED 12:59
PROVIDERS: Physician Assistant Surgical; PCP Family Medicine; Visit Provider Orthopaedic Surgery
PROC: (CPT 27130; principal; 2022-03-28 07:30)
DX: M16.11 Unilateral primary osteoarthritis, right hip (principal); I10 Essential (primary) hypertension; E78.00 Pure hypercholesterolemia, unspecified; Z79.82 Long term (current) use of aspirin; E66.9 Obesity, unspecified; Z68.33 Body mass index [BMI] 33.0-33.9, adult
CPT/HCPCS: 27130; 36415; 73501; 80048; 82306; 85025; 97110; 97116; 97161; 97165; 97530; 97535; 99199; A9270; C1776; J0171; J0690; J1100; J1170; J1885; J2250; J2270; J2405; J2704; J2710; J2795; J3010; J3370; J7030; J7120

== ENCOUNTER 2022-08-16 09:00 | Outpatient (CLI) | payer MEDICARE, SELFPAY ==
[2022-08-16 09:40] LABS: Basophils Absolute Auto 0.1 K/mm3 (0.0-0.1); Basophils Percent Auto 0.9 % (0.2-1.2); Eosinophils Absolute Auto 0.2 K/mm3 (0-0.3); Eosinophils Percent Auto 2.3 % (0-4.4); Hematocrit 42.3 % (42.0-52.0); Hemoglobin 13.7 g/dL (14.0-18.0); Immature Granulocyte Absolute 0.01 K/mm3 (0.00-0.031); Immature Granulocyte Percent A 0.2 % (0-0.5); Lymphocytes Absolute Auto 2.34 K/mm3 (0.9-3.2); Lymphocytes Percent Auto 36.2 % (18.3-44.2); Mean Corpuscular HGB Conc 32.4 g/dl (32-36); Mean Corpuscular Hemoglobin 30.7 pg (26-34); Mean Corpuscular Volume 94.8 fl (80-100); Mean Platelet Volume 10.1 fl (7.4-10.4); Monocytes Absolute Auto 0.5 K/mm3 (0.1-0.6); Monocytes Percent Auto 7.7 % (2.6-8.5); Neutrophils Absolute Auto 3.4 K/mm3 (1.3-6.7); Neutrophils Percent Auto 52.7 % (45.5-73.1); Platelet Count Result 214 k/mm3 (150-375); Red Blood Count 4.46 M/mm3 (4.6-6.20); Red Cell Distribution Width 13.2 % (11.5-14.5); White Blood Count 6.5 K/mm3 (4.5-10.0)
[2022-08-16 09:50] LABS: Urine Cotinine NEGATIVE
== END 2022-08-16 09:01 | disposition home or self-care (01) ==
PROVIDERS: PCP Family Medicine; Visit Provider Orthopaedic Surgery
DX: M16.12 Unilateral primary osteoarthritis, left hip (principal); Z01.818 Encounter for other preprocedural examination
CPT/HCPCS: 80307; 85025; 86850; 86900; 86901; 87081

== ENCOUNTER 2022-08-22 01:49 | Day surgery (SDC) | payer MEDICARE, SELFPAY ==
--- NOTE | 2022-08-10 09:08 | PC.NURSE ---
PRE-OP INSTRUCTIONS, PLEASE READ CAREFULLY Report to the Outpatient Waiting Room, entrance under the green pavilion located off [facility], at time _0600_ on date _08/22/22_. Planned Procedure Time: _0730_. PACK A SMALL OVERNIGHT BAG AND LEAVE IN THE CAR ALONG WITH YOUR WALKER Time changes happen often and if your time is changed the preop area will call you the afternoon before. - You and your visitor will be asked to self-screen and do not enter if you have any COVID symptoms. - Only one visitor is requested with a max of two and NO children visitors are allowed at this time. - The patient visitor may be requested to leave or wait in car when not with patient due to distancing restrictions. - A mask is optional within the hospital. -VISITING HOURS 8AM-8PM Patients may have clear liquids (water, carbonated beverages, clear teas, apple juice) until 3 hours prior to surgery (0430 AM) with a maximum of 20 ounces. - No food from midnight until time of surgery Take the following medications with a SIP of water the morning of surgery: _AMLODIPINE_ Medications to discontinue per [facility] - _DICLOFENAC, VITAMINS/SUPPLEMENTS 7 DAYS PRIOR TO SURGERY (PER PT), Date to take last dose 08/14/22_ Please no make-up, nail [place] islander, hairspray, perfume, deodorant, or body powder the day of surgery. No jewelry (including any body piercings) or valuables the day of surgery, leave them at home. Please take a shower or bath the night before, or the morning of, surgery with an antibacterial soap. Wear comfortable, loose fitting clothing. - Jewelry must be removed prior to entering the operating room. Rings and piercings that are not removed may be cut off. - The hospital will not accept responsibility for valuables. - Please leave all valuables, including medications, at home the day of surgery. If you are going home after surgery, a licensed uke driver must drive you home. - NO public transportation without another adult if you receive anesthesia. - We recommend that an adult stay with you for 24 hours following discharge. - We also recommend that you do not drive, make important decision, drink alcoholic beverages, or take any drugs that were not prescribed by your health care provider for at least 24 hours after your discharge time. Follow any additional instructions given to you from your surgeon. If you or anyone in your household have experienced Covid symptoms in the past week, please notify your surgeon or the nurse liaison at the phone number below for possible testing. Telephone instructions given to _PATIENT_and asked if any additional questions and then verbalized understanding. Patient advised to call surgeon office or pre surgery nurse liaison [phone] if any additional questions.
[2022-08-10 09:14] VITALS: BMI 34.0
--- NOTE | 2022-08-19 07:52 | PM.IMHP ---
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 He underwent right total hip arthroplasty in March of this year. He Had an uneventful recovery. He is very happy with his right total hip. He has moderately severe osteoarthritis in the left hip. He has been taking anti-inflammatories, diclofenac, without improvement of his symptoms. He is having symptoms that are affecting his daily life feels at this point he would rather proceed with total hip arthroplasty rather continue nonsurgical treatment Review of Systems Review of Systems: All systems reviewed & are unremarkable except as noted in HPI and below PMFSH Past Medical History Medical History Benign prostatic hyperplasia with lower urinary tract symptoms However patient reports history of BPH or urinary symptoms. Essential hypertension High cholesterol History of basal cell carcinoma Kidney stones 1 occurrence which he passed on his own. Melanoma Excised from the left scientologist Obesity BMI of 33.1 Pre-diabetes Patient had a hemoglobin A1c of 6.09 May 2021 which technically qualifies for criteria of diet-controlled diabetes. Squamous cell carcinoma of scalp Surgical History Surgical History H/O colonoscopy With history of polypectomy. History of tonsillectomy and adenoidectomy S/P total right hip arthroplasty Family History Family History Father Hypertension Mother Hypertension Cerebrovascular accident Family history of diabetes mellitus in first degree relative Family history of malignant neoplasm of breast in first degree relative Sibling Hypertension Social History Social History Social History: He lives in a single-level home with 2 steps for entry. Code status: Full code Surrogate decision maker: Smoking status: Never smoker Second hand tobacco smoke exposure: No Additional smoking assessment comments: PT DENIES ALL FORMS OF TOBACCO USE Alcohol intake: never Substance use: never Substance use type: does not use Additional living arrangements comments: He lives at home with his . They have been since 1976. They have 4 children a son and 3 daughters. 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 Gender identity (if verbalized by the patient): Male Sexual Orientation (if Verbalized by the Patient): Straight or Heterosexual Spiritual care concerns: No Meds Home Medications and Allergies Home Medications Medication Instructions Recorded Confirmed Type Glucofort 1 cap PO HS 10/11/21 08/10/22 History alpha lipoic acid 200 mg tablet 200 mg PO DAILY 10/11/21 08/10/22 History cholecalciferol (vitamin D3) 25 25 mcg PO QAM 10/11/21 08/10/22 History mcg (1,000 unit) capsule glucosamine-chondroitin 250 mg-200 1 tablet PO QAM 10/11/21 08/10/22 History mg tablet (Osteo Bi-Flex) omega-3 fatty acids-vitamin E 1 cap PO DAILY 10/11/21 08/10/22 History 1,000 mg capsule acetaminophen 500 mg tablet 1,000 mg PO Q6HR #90 tabs 03/29/22 08/10/22 Rx amlodipine 5 mg-benazepril 20 mg See Rx Instructions .Route 04/13/22 08/10/22 Rx capsule .COMPLEX #100 caps atorvastatin 10 mg tablet See Rx Instructions .Route 04/13/22 08/10/22 Rx .COMPLEX #100 tabs diclofenac sodium 75 mg 75 mg PO BID #60 tabs 06/30/22 08/10/22 Rx tablet,delayed release misoprostol 200 mcg tablet 200 mcg PO BID #60 tabs 06/30/22 08/10/22 Rx Allergies Allergy/AdvReac Type Severity Reaction Status Date / Time Penicillins Allergy Unknown Rash Verified 08/10/22 09:09 Exam Narrative: 66-
[2022-08-22] VITALS (17 sets, daily range): BP systolic 98–123; BP diastolic 61–85; PULSE 56–81; RESP 10–20; TEMP 36.3–36.9; O2SAT 93–100
--- NOTE | ~2022-08-22 | XR_ITS ---
EXAMINATION: XR hip LT 1V w AP pelvis DATE: 08/22/2022 10:52 INDICATION: Anterior approach left hip arthroplasty TECHNIQUE: Anteroposterior view of the pelvis and cross-table lateral views of the left hip were obta ined. COMPARISON: 03/28/2022 FINDINGS: Bilateral total hip arthroplasties which appear well-seated in near-anatomic alignment, unchanged on the right and new since the prior study on the left. No fracture. Mild bilateral sacroiliac osteoarth ritis. Surgical drain and expected postoperative gas at the operative bed about the left hip. A few p hleboliths in the pelvis. IMPRESSION: 1. Expected appearance of a new left total hip arthroplasty, negative for postoperative purposes. Reviewed, dictated and finalized at location B. KEET RAISER IMPRESSION: 1. Expected appearance of a new left total hip arthroplasty, negative for posto perative purposes.
--- NOTE | ~2022-08-22 | XR_ITS ---
EXAMINATION: XR surgery orthopedic DATE: 08/22/2022 10:32 INDICATION: Anterior approach total left hip arthroplasty. TECHNIQUE: 2 intraoperative fluoroscopic views of left hip were obtained. I was not present. Fluorosc opy exposure time was 51 seconds. COMPARISON: Left hip radiographs 03/28/2022 FINDINGS: The first image demonstrates resection of the left femoral head. The second image demonstra mihai a total left hip arthroplasty in near-anatomic alignment. IMPRESSION: 1. Total left hip arthroplasty in near-anatomic alignment. Reviewed, dictated and finalized at location A. ACTOR TENDER RAW STOCK
[2022-08-22] MEDS: ACETAMINOPHEN 500 MG TABLET 1000 MG PO ×2 (06:22→15:26)
--- NOTE | 2022-08-22 07:06 | WPDANESEPPF ---
Anes - Initial Pre Proc Eval Procedure: Operation Date: 08/22/22 07:30 Proposed Procedures p Left Total Hip Arthroplasty Anterior Approach - Tera Granados MD Date/Time: 08/22/22 07:06 Surgeon: Tera Granados MD Pre Op Diagnosis: oa left hip Patient Data Age: 66 Gender: M Height: 1.75 m Weight: 100.1 kg Last Vital Signs Temp 36.3 C L 08/22/22 06:04 Pulse 71 08/22/22 06:04 Resp 16 08/22/22 06:04 BP 123/85 08/22/22 06:04 Pulse Ox 100 08/22/22 06:04 O2 Del Method Room Air 08/22/22 06:04 Allergies Allergy/AdvReac Type Severity Reaction Status Date / Time Penicillins Allergy Mild Rash Verified 08/22/22 06:15 Home Medications Medication Instructions Recorded Confirmed Type Glucofort 1 cap PO HS 10/11/21 08/22/22 History alpha lipoic acid 200 mg tablet 200 mg PO DAILY 10/11/21 08/22/22 History cholecalciferol (vitamin D3) 25 25 mcg PO QAM 10/11/21 08/22/22 History mcg (1,000 unit) capsule glucosamine-chondroitin 250 mg-200 1 tablet PO QAM 10/11/21 08/22/22 History mg tablet (Osteo Bi-Flex) omega-3 fatty acids-vitamin E 1 cap PO DAILY 10/11/21 08/22/22 History 1,000 mg capsule acetaminophen 500 mg tablet 1,000 mg PO Q6HR #90 tabs 03/29/22 08/22/22 Rx amlodipine 5 mg-benazepril 20 mg See Rx Instructions .Route 04/13/22 08/22/22 Rx capsule .COMPLEX #100 caps atorvastatin 10 mg tablet See Rx Instructions .Route 04/13/22 08/10/22 Rx .COMPLEX #100 tabs diclofenac sodium 75 mg 75 mg PO BID #60 tabs 06/30/22 08/22/22 Rx tablet,delayed release misoprostol 200 mcg tablet 200 mcg PO BID #60 tabs 06/30/22 08/22/22 Rx Patient hx anesthesia problems: none Family hx anesthesia problems: none Results Review: All pre-operative results and documents have been reviewed as part of the pre-operative evaluation. [facility] Past Medical History Medical History Benign prostatic hyperplasia with lower urinary tract symptoms However patient reports history of BPH or urinary symptoms. Essential hypertension High cholesterol History of basal cell carcinoma Kidney stones 1 occurrence which he passed on his own. Melanoma Excised from the left amish Obesity BMI of 33.1 Pre-diabetes Patient had a hemoglobin A1c of 6.09 May 2021 which technically qualifies for criteria of diet-controlled diabetes. Squamous cell carcinoma of scalp Surgical History Surgical History H/O colonoscopy With history of polypectomy. History of tonsillectomy and adenoidectomy S/P total right hip arthroplasty Family History Family History Father Hypertension Mother Hypertension Cerebrovascular accident Family history of diabetes mellitus in first degree relative Family history of malignant neoplasm of breast in first degree relative Sibling Hypertension Social History Social History Social History: He lives in a single-level home with 2 steps for entry. Code status: Full code Surrogate decision maker: Smoking status: Never smoker Second hand tobacco smoke exposure: No Additional smoking assessment comments: PT DENIES ALL FORMS OF TOBACCO USE Alcohol intake: never Substance use: never Substance use type: does not use Living arrangements: with family Additional living arrangements comments: He lives at home with his . They have been since 1976. They have 4 children a son and 3 daughters. 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 Gender identity (if verbalized by the patient): Male Sexual Orientation (if Verbalized by the Patient): Straight or Heterosexual Spiritual care concerns: No Anes - Eval Final PreProcedure Day of Procedure 08/04
--- NOTE | 2022-08-22 07:17 | WPDHPUPDATE1 ---
History and Physical Update Update Date/Time: 08/22/22 07:17 History and Physical has been reviewed, including an updated exam of the patient. There are NO changes in the patient's condition. Risks, benefits, and alternatives have been discussed and questions answered. Patient agrees to proceed with procedure.
[2022-08-22] MEDS: TRANEXAMIC ACID 1,000MG/ISO100 1,000 MG/100 ML BAG 200 MG IVPB (07:20)
[2022-08-22] MEDS: LACTATED RINGERS 1,000 ML 30 ML IV CONT ×2 (07:20→10:58)
[2022-08-22] MEDS: ceFAZolin 2 GM/D5W 50 ML 2 GM/50 ML BAG IVPB (07:29)
[2022-08-22] MEDS: ceFAZolin SODIUM 1 GM VIAL 3 GM (08:18)
[2022-08-22] MEDS: ceFAZolin SODIUM 1 GM VIAL 2 GM IV PUSH (10:20)
[2022-08-22] MEDS: KETOROLAC 15 MG/ML VIAL (*BKC) IV PUSH ×3 (10:23→22:50)
[2022-08-22] MEDS: TRANEXAMIC ACID 1,000 MG/10 ML AMPUL 1000 MG IV PUSH (10:28)
--- NOTE | 2022-08-22 10:37 | W.PM.PROC2 ---
Procedure Note - Detailed Date of Procedure 08/22/22 Pre-op Diagnosis oa left hip Post-op Diagnosis Same Procedure Performed Direct anterior approach left total hip arthroplasty Surgeon Tera Granados MD Slab Polisher Is Andre Anesthesia General Description of Procedure Patient was brought to the operating room and general anesthesia was administered. Padding was applied the feet and boots applied and [facility] and the left hip prepped draped usual fashion. He received 2 g Ancef weight based vancomycin 1 g tranexamic acid preoperatively. A 10 cm longitudinal incision was made starting 3 cm lateral to the ASIS. The fascia over the tensor fascia margarita was exposed and longitudinally incised elevating this off the anterior 1/2 the TFL muscle. Ascending lateral femoral circumflex vessels were isolated ligated with suture divided. Retractor was placed over the anteromedial capsule the hip abducted internally rotated the gluteus minimus elevated off the lateral capsule. An inverted T capsulotomy was performed and femoral neck osteotomy made according preoperative templating. Femoral head measured 53 mm in diameter. Acetabulum was exposed labrum excised. The femur was externally rotated extended and the interval between conjoined tendon and piriformis incised which allowed minimal recession of the conjoined tendon. The seemed to have adequate mobility for exposure of the proximal femur with this maneuver. The the lateral tip of the lateral capsular flap was removed. The acetabulum was then exposed with the leg in the horizontal position traction external rotation and we medialized with a 45 Reamer next 51 and 53 and there was still a mm of rim to ream we reamed to the 55 which gave reaming to the periphery of the anterior posterior bravo and superiorly. The 55 trial was quite tight. His bone density was excellent and there were no defects. Therefore we lightly reamed to the 56 Reamer and impacted the 56 pinnacle shell which did finally impacted. Fully seat but was a very tight fit. This was placed at 40? of abduction and anteversion such that the anterior shell was a mm under the anterior rim and the posterior shell was about 2 mm proud of the posterior and posterior superior labrum. Full seating was achieved. A single screw placed in the ilium and the 36 inner diameter liner seated without difficulty. The femur was externally rotated extended and we broached up to a size 8. His bone density in the femur was excellent. We trialed and I could see that the neck height where we had the broach was appropriate. We calcar planed the small planer and we had some wiggles we broached up to the size 9. This seemed to be fairly solid on torsional stress. We trialed with the +5 which gave us equal leg lengths and minimally reduced offset. I felt this would be satisfactory as trying the 8.5 was too tight in length and a bit. We carefully examined the 9 with additional torsional stress using the concise done attached and there was a little bit of wiggle still therefore we did broach up to a 10 Actis and we countersunk this of another mm below the neck cut and trialed with the standard offset 06/14/2012 neck trial and the +5. This gave what appeared to be identical offset to the other side which had the same implant and head size and leg lengths looked equal. The shoulder of the prosthesis was just at the saddle just like it the other side. There was appropriate soft tissue tension. We formally calcar planed at this time and the size 10 Actis stem standard neck offset was inserted and seated fully without difficulty the last couple of mm requiring the mallet and handheld impactor to achieve enough force to fully seat. Was excellent stability of the stem no cracks. The wound and trunnion were thoroughly irrigated and dried and the size +5 ceramic by 36 head impacted onto the trunnion. The wound was irrigated with antibiotic solution hip red
--- NOTE | 2022-08-22 10:59 | P.OPB_ITS ---
Procedure Note - Brief Procedure Note - Brief Date of procedure: 08/22/22 Pre-op diagnosis: oa left hip Left hip DJD Procedure performed: left anterior total arthroplasty Description of procedure: 66-year-old male underwent left anterior total hip arthroplasty 08/22. was involved in the procedure including positioning the patient on next OR table. Persisting to time surgery as well as wound closure. Customer Quality Specialist getting patient to recovery. Total time spent was 4 hours Surgeon: DAGO Ott
--- NOTE | 2022-08-22 12:04 | SUR.PHASEI ---
PT HAS MET REQUIREMENTS TO MOVE OUT OF RECOVERY.
--- NOTE | 2022-08-22 14:50 | ADMGEN ---
This patient, Gulshan Carrillo, was admitted to 2 Medical Room 255-01. Patient/family oriented to hospital policies and general routines including ID bracelet, bed and alarms, visiting hours, pain management, procedures, bathroom and other care routines, personal items, smoking policy, room service/diet, and visiting hours. Information on how to activate the Rapid Response Team has been discussed. Patient/Family are encouraged to report perceived risks to care and to ask questions if they do not understand what they are told or what they should do.
[2022-08-22] MEDS: oxyCODONE HCL (*CRX) 5 MG TAB IR PO ×3 (15:26→22:51)
[2022-08-22] MEDS: ATORVASTATIN 10 MG TABLET BY MOUTH (16:38)
[2022-08-22] MEDS: SENNA/DOCUSATE SODIUM TABLET 2 TAB PO (16:38)
[2022-08-22] MEDS: FAMOTIDINE 20 MG TABLET PO (22:50)
[2022-08-23 00:14] VITALS: BP 107/64; PULSE 58; RESP 18; TEMP 36.6; O2SAT 97
[2022-08-23] MEDS: ACETAMINOPHEN 500 MG TABLET 1000 MG PO ×2 (01:25→05:32)
[2022-08-23 03:50] VITALS: BP 99/59; PULSE 65; RESP 18; TEMP 36.8; O2SAT 96
[2022-08-23 05:29] LABS: Basophils Percent Auto 0.2 % (0.2-1.2); Hematocrit 33.4 % (42.0-52.0); Hemoglobin 10.8 g/dL (14.0-18.0); Immature Granulocyte Absolute 0.04 K/mm3 (0.00-0.031); Immature Granulocyte Percent A 0.4 % (0-0.5); Lymphocytes Absolute Auto 1.27 K/mm3 (0.9-3.2); Lymphocytes Percent Auto 12.5 % (18.3-44.2); Mean Corpuscular HGB Conc 32.3 g/dl (32-36); Mean Corpuscular Hemoglobin 30.6 pg (26-34); Mean Corpuscular Volume 94.6 fl (80-100); Mean Platelet Volume 10.3 fl (7.4-10.4); Monocytes Absolute Auto 0.8 K/mm3 (0.1-0.6); Neutrophils Percent Auto 78.9 % (45.5-73.1); Platelet Count Result 170 k/mm3 (150-375); Red Blood Count 3.53 M/mm3 (4.6-6.20); Red Cell Distribution Width 13.2 % (11.5-14.5); White Blood Count 10.1 K/mm3 (4.5-10.0)
[2022-08-23 05:36] LABS: Anion Gap 4 mmol/L (8-16); Blood Urea Nitrogen 14 mg/dL (9-20); Calcium 7.8 mg/dL (8.4-10.2); Carbon Dioxide 27 mmol/L (22-30); Chloride 102 mmol/L (98-107); Estimated CRCL calculation 68 ml/min; Estimated Glomerular Filt Rate > 60; Glucose 122 mg/dL (65-110); Sodium 133 mmol/L (137-145)
--- NOTE | 2022-08-23 06:25 | PM.PNORT ---
Subjective Subjective Date/Time Seen: 08/23/22 06:25 Postop day 1 patient is alert. Afebrile vital signs stable. Labs are noted. His Dressing is. Neurovascularly is. He was up walking with therapy yesterday. His drain is out. Pain is very well controlled. Patient is anxious to go today. We will plan to have patient work with therapy this morning and is discharged to home late morning Objective Data Vital Signs Vital Signs: Vital Signs - 24 hr 08/22/22 10:58 08/22/22 11:10 08/22/22 11:25 Temperature 36.6 C Pulse Rate 60 62 60 Respiratory Rate 14 12 12 Blood Pressure 112/70 109/72 Pulse Oximetry 96 99 99 Oxygen Delivery Simple Face Mask Simple Face Mask Simple Face Mask Oxygen Flow Rate 8 8 8 08/22/22 11:40 08/22/22 11:55 08/22/22 12:10 Temperature Pulse Rate 56 L 63 59 L Respiratory Rate 10 L 13 12 Blood Pressure 106/71 101/73 98/70 L Pulse Oximetry 95 95 96 Oxygen Delivery Room Air Room Air Room Air Oxygen Flow Rate 08/22/22 12:25 08/22/22 12:45 08/22/22 13:26 Temperature 36.7 C Pulse Rate 65 64 71 Respiratory Rate 17 16 16 Blood Pressure 103/68 115/64 100/71 Pulse Oximetry 96 95 93 Oxygen Delivery Room Air Room Air Room Air Oxygen Flow Rate 08/22/22 14:21 08/22/22 13:20 08/22/22 14:51 Temperature Pulse Rate 81 Respiratory Rate 16 Blood Pressure 107/68 Pulse Oximetry 98 Oxygen Delivery Room Air Room Air Room Air Oxygen Flow Rate 08/22/22 14:50 08/22/22 15:05 08/22/22 15:35 Temperature 36.6 C 36.8 C 36.8 C Pulse Rate 77 70 66 Respiratory Rate 18 18 18 Blood Pressure 116/70 107/63 108/68 Pulse Oximetry 99 96 97 Oxygen Delivery Oxygen Flow Rate 08/22/22 16:35 08/22/22 20:24 08/22/22 20:00 Temperature 36.9 C 36.9 C Pulse Rate 63 56 L 56 L Respiratory Rate 18 20 20 Blood Pressure 104/62 102/61 Pulse Oximetry 96 97 97 Oxygen Delivery Room Air Oxygen Flow Rate 08/23/22 00:14 08/23/22 03:50 Temperature 36.6 C 36.8 C Pulse Rate 58 L 65 Respiratory Rate 18 18 Blood Pressure 107/64 99/59 L Pulse Oximetry 97 96 Oxygen Delivery Oxygen Flow Rate Intake/Output Intake/Output: Intake & Output 08/20/22 08/21/22 08/22/22 08/23/22 23:59 23:59 23:59 23:59 Intake Total 1540 200 Output Total 410 Balance 1540 -210 Meds/Results Medications: Active Medications Generic Name Dose Route Start Last Admin Trade Name Freq PRN Reason Stop Dose Admin Acetaminophen 1,000 mg 08/22/22 14:39 08/23/22 05:32 Acetaminophen 500 Mg Tablet PO 1,000 mg Q6HR MOLLY Administration Amlodipine Besylate 5 mg 08/22/22 15:10 08/22/22 16:46 Amlodipine Besylate 5 Mg Tablet PO Not Given DAILY MOLLY Apixaban 2.5 mg 08/23/22 09:00 Apixaban 2.5 Mg Tablet PO Q12HR MOLLY Atorvastatin Calcium 10 mg 08/22/22 14:39 08/22/22 16:38 Atorvastatin 10 Mg Tablet BY MOUTH 10 mg DAILY MOLLY Administration Celecoxib 200 mg 08/23/22 09:00 Celecoxib 200 Mg Capsule PO DAILY MOLLY Cephalexin HCl 500 mg 08/23/22 18:00 Cephalexin 500 Mg Capsule PO Q6HR MOLLY Famotidine 20 mg 08/22/22 21:00 08/22/22 22:50 Famotidine 20 Mg Tablet PO 20 mg Q12HR MOLLY Administration Hydroxyzine HCl 50 mg 08/22/22 14:39 Hydroxyzine Hcl 25 Mg Tablet PO Q4H PRN Itching Vancomycin HCl 1,000 mg in 250 mls @ 250 mls/hr 08/22/22 19:00 08/23/22 01:27 Vancomycin 1,000 Mg/D5w 250 Ml IVPB 08/23/22 07:59 Infused Q12H MOLLY Infusion Cefazolin Sodium 1 gm in 50 mls @ 100 mls/hr 08/22/22 18:00 08/23/22 01:25 Ancef 1 Gm/D5w 50 Ml Pm IVPB 08/23/22 10:29 100 mls/hr Q8H MOLLY Administration Lisinopril 20 mg 08/22/22 15:10 08/22/22 16:47 Lisinopril 20 Mg Tablet PO Not Given QAM [facility] Morphine Sulfate 2 mg 08/22/22 14:39 Morphine Sulfate (*Crx) 2 Mg/Ml Inj IV PUSH Q3H PRN Pain Rated 7-10 Naloxone HCl 0.1 mg 08/22/22 14:39 Naloxone Hcl 0.4 Mg/Ml Vial IV PUSH Q
[2022-08-23] MEDS: oxyCODONE HCL (*CRX) 5 MG TAB IR PO (06:42)
[2022-08-23 08:24] VITALS: BP 92/69
[2022-08-23] MEDS: SENNA/DOCUSATE SODIUM TABLET 2 TAB PO (09:12)
[2022-08-23] MEDS: ATORVASTATIN 10 MG TABLET BY MOUTH (09:12)
[2022-08-23] MEDS: CELECOXIB 200 MG CAPSULE PO (09:12)
[2022-08-23] MEDS: polyethylene glycoL 3350 17 GM POWD.PACK PO (09:13)
[2022-08-23] MEDS: FAMOTIDINE 20 MG TABLET PO (09:13)
[2022-08-23] MEDS: APIXABAN 2.5 MG TABLET PO (09:13)
[2022-08-23] MEDS: CHOLECALCIFEROL 1,000 UNITS TABLET 1000 UNITS PO (09:13)
--- NOTE | 2022-08-23 10:17 | P.PNAN_ITS ---
Anes - Prog Note Post-Op Date/Time: 08/23/22 10:17 Cardiovascular status: normal Respiratory status: normal Airway patency: baseline Mental status: baseline Post-Op hydration status: normal Vital Signs: Last Vital Signs Temp 98.3 F 08/23/22 03:50 Pulse 65 08/23/22 03:50 Resp 18 08/23/22 03:50 BP 92/69 L 08/23/22 08:24 Pulse Ox 96 08/23/22 03:50 O2 Del Method Room Air 08/23/22 09:22 O2 Flow Rate 8 08/22/22 11:25 Pain Score (VAS): 0/10 I/O: Intake & Output 08/22/22 08/23/22 08/23/22 23:59 07:59 15:59 Intake Total 840 250 470 Output Total 410 Balance 840 -160 470 Laboratory Tests 08/23/22 05:10 08/23/22 05:10 08/23/22 08/23/22 05:10 05:10 WBC 10.1 H RBC 3.53 L Hgb 10.8 L Hct 33.4 L MCV 94.6 MCH 30.6 MCHC 32.3 RDW 13.2 Plt Count 170 MPV 10.3 Immature Gran % (Auto) 0.4 Neut % (Auto) 78.9 H Lymph % (Auto) 12.5 L [place] % (Auto) 8.0 Eos % (Auto) 0.0 Baso % (Auto) 0.2 Lymph # (Auto) 1.27 [place] # (Auto) 0.8 H Eos # (Auto) 0.0 Baso # (Auto) 0.0 Abs Immat Gran (auto) 0.04 H Absolute Neuts (auto) 8.0 H Absolute Nucleated RBC 0.0 Nucleated RBC % 0.0 Sodium 133 L Potassium 4.0 Chloride 102 Carbon Dioxide 27 Anion Gap 4 L BUN 14 Creatinine 1.10 Estim Creat Clear Calc 68 Estimated GFR > 60 Glucose 122 H Calcium 7.8 L Post-procedural complaints: none Patient Feedback: Patient satisfied with anesthetic care.
--- NOTE | 2022-08-31 08:02 | PM.DS ---
DS: Admitting Diagnosis Discharge Date 08/23/22 Admitting Diagnosis Left hip DJD DS: Discharge Diagnosis Discharge Diagnosis (1) Hip arthritis: Code(s): M16.10 - Unilateral primary osteoarthritis, unspecified hip Status: Acute DS: Summary Hospital Course Hospital Course: 67-year-old male who underwent left total hip arthroplasty anterior approach on 08/22. Underwent procedure without complications. Postoperatively he has been afebrile vital signs are stable. His dressing is dry. His drain is out. He is weight-bearing as tolerated and has been up walking with therapy as well as to the restroom multiple times. He is on Eliquis for DVT prophylaxis. He will be discharged home on 08/23. Patient is on scheduled Tylenol as well as oxycodone 5 mg for pain control. He is on Celebrex for heterotopic bone formation prophylaxis for 10 days. Overall patient is doing well. He was advise any questions or concerns once he goes home he is to call the office otherwise we will see him at his appointed dates Time Spent with Patient Time attestation: Total time spent providing and/or coordinating discharge services: Discharge Plan Discharge Patient Disposition: Home, Self-Care Discharge Instructions: TERA GRANADOS M.D [facility], [place] [address] [place] [id number] POST-OPERATIVE DISCHARGE INSTRUCTIONS ANTERIOR TOTAL HIP ARTHROPLASTY 1. Move toes/feet up and down every hour while awake. 2. Be up walking every hour while awake. 3. Use cane in hand opposite of side of hip surgery or walker as comfort allows. Avoid sitting in a chair unless eating, receiving visitors or using the toilet. 4. When resting, lie on back with leg elevated above heart to minimize swelling. Significant swelling could indicate a blood clot and if this occurs, call the office (or go to the ER) to have a venous ultrasound performed. 5. Wound Care: Keep dry sponge on wound for 2 weeks. Use minimal tape. 6. Follow weight bearing status as instructed. 7. May shower with dressing off. Patient Instructions: Apixaban (By mouth) Stand Alone Forms: General Discharge Instructions Follow-up/Referrals: Tera Granados MD [Physician] - Keep Reg. Scheduled Appt. Discharge Medications: New Eliquis 2.5 mg Tablet 2.5 mg PO Q12HR Qty: 70 0RF celecoxib [Celebrex] 200 mg Capsule 200 mg PO DAILY Qty: 10 0RF sennosides-docusate sodium [Senokot-S] 8.6-50 mg Tablet 2 tab-cap PO BID Qty: 60 0RF cephalexin 500 mg Capsule 500 mg PO Q6HR Qty: 28 0RF oxycodone 5 mg Tablet 5 mg PO Q4H Qty: 40 0RF Continued cholecalciferol (vitamin D3) 25 mcg (1,000 unit) Capsule 25 mcg PO QAM alpha lipoic acid 200 mg Tablet 200 mg PO DAILY Glucofort 1 cap PO HS Rx Instructions: SUPPLEMENT TO LOWER BS acetaminophen 500 mg Tablet 1,000 mg PO Q6HR Qty: 90 0RF atorvastatin 10 mg tablet See Rx Instructions .ROUTE .COMPLEX Qty: 100 2RF Dose Instruction: TAKE 1 TABLET BY MOUTH DAILY Rx Instructions: TAKE 1 TABLET BY MOUTH DAILY amlodipine-benazepril 5-20 mg capsule See Rx Instructions .ROUTE .COMPLEX Qty: 100 2RF Dose Instruction: TAKE 1 CAPSULE BY MOUTH DAILY Rx Instructions: TAKE 1 CAPSULE BY MOUTH DAILY Discontinued glucosamine-chondroitin [Osteo Bi-Flex] 250-200 mg Tablet 1 tablet PO QAM omega-3 fatty acids-vitamin E 1,000 mg Capsule 1 cap PO DAILY diclofenac sodium 75 mg tablet,delayed release (DR/EC) 75 mg PO BID Qty: 60 0RF misoprostol 200 mcg tablet 200 mcg PO BID Qty: 60 0RF
== END 2022-08-23 10:52 | disposition home or self-care (01) ==
LOC: ANHSURGERY 05:57 → ANH2MED 14:47
PROVIDERS: Physician Assistant Surgical; PCP Family Medicine; Visit Provider Orthopaedic Surgery
PROC: (CPT 27130; principal; 2022-08-22 07:30)
DX: M16.12 Unilateral primary osteoarthritis, left hip (principal); I10 Essential (primary) hypertension; E78.00 Pure hypercholesterolemia, unspecified; R73.03 Prediabetes; E66.9 Obesity, unspecified; Z68.32 Body mass index [BMI] 32.0-32.9, adult
CPT/HCPCS: 27130; 36415; 73501; 80048; 80307; 85025; 86850; 86900; 86901; 87081; 97110; 97116; 97161; 97165; 97530; 97535; 99199; A9270; C1776; J0171; J0690; J1100; J1170; J1885; J2250; J2270; J2405; J2704; J2710; J2795; J3370; J7120